=== PATIENT | male | born 1965 | race Caucasian/White ===

== ENCOUNTER 2019-09-04 20:48 | Emergency (ER) | payer BC ==
[2019-09-04 21:05] VITALS: BP 128/93; PULSE 75
[2019-09-04] MEDS ORDERED: Diphtheria,Pertussis(Acell),Tetanus Vaccine 0.5 ML Syringe IM ONE (22:35)
--- NOTE | 2019-09-04 22:40 | EDM.PDOC ---
ED HPI GENERAL MEDICAL PROBLEM - General Chief Complaint: Laceration Stated Complaint: TEAR ON RIGHT THUMB Time Seen by Provider: 09/04/19 22:18 Source of Information: Reports: Patient, RN Notes Reviewed History Limitations: Reports: No Limitations - History of Present Illness INITIAL COMMENTS - FREE TEXT/NARRATIVE: Patient is a 54-year-old male who presents to the ED for evaluation of a laceration on his right thumb. Patient notes he was on a fishing trip, and he got his thumb entrapped between 2 boats, and this resulted in a laceration to his right thumb. This is roughly 2 cm in length, slightly gaping. This laceration happened on Monday. He states he was out of town was not able to get anywhere to be seen until today. Patient's not sure of his when his last teta nus booster was. He denies any numbness or tingling to the area, and he still can move his thumb in all range of motion without little difficulty. He did not take any sort of Tylenol/ibuprofen for this. He denies any other sick-like symptoms, fever/chills, cough/shortness of breath, nausea/vomiting/diarrhea. Right Hand Pain Score (Numeric/FACES): 2 - Related Data Allergies Allergy/AdvReac Type Severity Reaction Status Date / Time No Known Allergies Allergy Verified 09/04/19 21:05 Home Meds: Home Meds Naproxen 500 mg PO BID #14 tablet 05/31/14 [Rx] traMADol [Ultram] 50 mg PO Q6H PRN #12 tab 05/31/14 [Rx] Past Medical History - Past Health History Medical/Surgical History: Denies Medical/Surgical History Social & Family History - Tobacco Use Smoking Status *Q: Never Smoker Second Hand Smoke Exposure: No - Caffeine Use Caffeine Use: Reports: None - Recreational Drug Use Recreational Drug Use: No ED ROS GENERAL - Review of Systems Review Of Systems: Comprehensive ROS is negative, except as noted in HPI. ED EXAM, SKIN/RASH Exam: See Below Exam Limited By: No Limitations General Appearance: Alert, WD/WN, No Apparent Distress Respiratory/Chest: No Respiratory Distress, Lungs Clear, Normal Breath Sounds, No Accessory Muscle Use, Chest Non-Tender Cardiovascular: Normal Peripheral Pulses, Regular Rate, Rhythm, No Murmur Peripheral Pulses: 2+: Radial (L), Radial (R) Extremities: Normal Range of Motion, Normal Capillary Refill, Joint Swelling (slight swelling to R thumb base) Neurological: Alert, Oriented, Normal Cognition, No Motor/Sensory Deficits Psychiatric: Normal Affect, Normal Mood Skin: Warm, Dry, Normal Color, No Rash, Wound/Incision (2 cm curvilinear laceration to the right thumb base on the palmar aspect of the hand. No anatomical snuffbox tenderness. No redness appreciated at the site of the wound. Bleeding is controlled at this time.) ED SKIN PROCEDURES - Laceration/Wound Repair Right Anterior Proximal Digit - 1st (Thumb) Appearance: Superficial, Clean Distal NVT: Neuro & Vascular Intact, No Tendon Injury Skin Prep: Chlorhexidine (Hibiciens), Saline Exploration/Debridement/Repair: Wound Explored, In a Bloodless Field, Explored to Base, No Foreign Material Found Closed with: Dermabond, Steri-Strips Lac/Wound length In cm: 2 Sterile Dressing Applied: Nurse Tetanus Status Addressed: Yes Complications: No Course - Vital Signs Last Recorded V/S: Last Vital Signs Temp 97.8 F 09/04/19 21:01 Pulse 75 09/04/19 21:01 Resp 18 09/04/19 21:01 BP 128/93 H 09/04/19 21: Pulse Ox 97 09/04/19 21:01 Departure - Departure Time of Disposition: 22:38 Disposition: Home, Self-Care 01 Condition: Good Clinical Impression: Laceration of thumb Qualifiers: Encounter type: initial encounter Damage to nail status: without damage Foreign body presence: without foreign body Laterality: right Qualified Code(s): S61.011A - Laceration without foreign body of right thumb without damage to nail, initial encounter - Discharge Information *PRESCRIPTION DRUG MONITORING PROGRAM REVIEWED*: No *COPY OF PRESCRIPTION DRUG MONITORING REPORT IN PATIENT LEN: No Instructions: Laceration Care, Adult, [id number] Referrals: Karina Plummer NP [Primary Care Provider] - Additional Instructions: You were evaluated in the ER today regarding your right thumb laceration. Your tetanus booster was updated at today's visit. You should not need another one for roughly 10 years. Your wound was cleansed, and then repaired with Steri-Strips, as the wound happened on Monday, and it was out of the window for sutures. Please keep an eye on the area, if you should develop any increased redness/pain/swelling, or any sort of drainage, you will want to seek care for further evaluation as you will likely need some antibiotics. Please try to keep the area clean and dry, you may cleanse with regular soap and water at home. Do not submerge the hand in water for more than 5 seconds while the wound is still healing. Please return to the ER at any time if your symptoms change or worsen. Sepsis Event Note (ED) - Evaluation Sepsis Screening Result: No Definite Risk - Focused Exam Vital Signs: Vital Signs Temp Pulse Resp BP Pulse Ox 09/04/19 21:01 97.8 F 75 18 128/93 H 97
== END 2019-09-04 23:00 | disposition home or self-care (01) ==
LOC: JD.ED 20:48
DX: S61.011A Laceration without foreign body of right thumb without damage to nail, initial encounter (principal); Z23 Encounter for immunization; W26.8XXA Contact with other sharp object(s), not elsewhere classified, initial encounter
CPT/HCPCS: 12001; 90471; 90715; 99282-25

== ENCOUNTER 2019-12-01 19:29 | Emergency (ER) | payer BC ==
[2019-12-01 19:39] VITALS: BP 161/120; PULSE 71
[2019-12-01] MEDS ORDERED: Sodium Chloride 0.9% 10 ML Syringe FLUSH PRN (19:40)
[2019-12-01] MEDS ORDERED: Ondansetron 4 MG/2 ML SDV IVPUSH ONE (19:43)
[2019-12-01] MEDS ORDERED: Sodium Chloride 0.9% 1,000 ML IV STA (19:43)
[2019-12-01] MEDS ORDERED: Ketorolac 30 MG/ML SDV IVPUSH ONE (19:43)
--- NOTE | 2019-12-01 19:52 | EDM.PDOC ---
ED HPI GENERAL MEDICAL PROBLEM - General Chief Complaint: Flank Pain Stated Complaint: LEFT SIDE PAIN Time Seen by Provider: 12/01/19 19:31 Source of Information: Reports: Patient History Limitations: Reports: No Limitations - History of Present Illness INITIAL COMMENTS - FREE TEXT/NARRATIVE: Patient is a 54-year-old male presenting to the emergency department with complaints of left-sided flank pain that wraps around to his left lower abdomen and into his groin. Symptoms began last evening. He describes the pain is fairly constant, however it did resolve for a period time last evening until this morning, however it has progressively worsened throughout the day. He has had some episodes of nausea and vomiting associated with this as well. He denies any fever or chills. Denies a history of kidney stones or diverticulosis. Denies any visible blood in his urine. Left Flank Pain Score (Numeric/FACES): 7 - Related Data Allergies Allergy/AdvReac Type Severity Reaction Status Date / Time No Known Allergies Allergy Verified 12/01/19 19:38 Home Meds: Home Meds Naproxen 500 mg PO BID #14 tablet 05/31/14 [Rx] traMADol [Ultram] 50 mg PO Q6H PRN #12 tab 05/31/14 [Rx] Past Medical History - Past Health History Medical/Surgical History: Denies Medical/Surgical History - Infectious Disease History Infectious Disease History: Reports: None Social & Family History - Tobacco Use Tobacco Use Status *Q: Never Tobacco User Second Hand Smoke Exposure: No - Caffeine Use Caffeine Use: Reports: None - Recreational Drug Use Recreational Drug Use: No ED ROS GENERAL - Review of Systems Review Of Systems: See Below Constitutional: Reports: No Symptoms. Denies: Fever, Chills, Weakness HEENT: Reports: No Symptoms Respiratory: Reports: No Symptoms Cardiovascular: Reports: No Symptoms Endocrine: Reports: No Symptoms GI/Abdominal: Reports: Nausea, Vomiting. Denies: Diarrhea : Reports: Flank Pain Musculoskeletal: Reports: No Symptoms Skin: Reports: No Symptoms Neurological: Reports: No Symptoms Psychiatric: Reports: No Symptoms Hematologic/Lymphatic: Reports: No Symptoms Immunologic: Reports: No Symptoms ED EXAM, RENAL/ - Physical Exam Exam: See Below General Appearance: Alert, WD/WN, No Apparent Distress Respiratory/Chest: No Respiratory Distress, Lungs Clear, Normal Breath Sounds, No Accessory Muscle Use, Chest Non-Tender Cardiovascular: Normal Peripheral Pulses, Regular Rate, Rhythm, No Edema, No Gallop, No JVD, No Murmur, No Rub GI/Abdominal: Normal Bowel Sounds, Soft, No Organomegaly, No Distention, No Abnormal Bruit, No Mass, Tender (Left lateral tenderness) Back Exam: Normal Inspection, Full Range of Motion, CVA Tenderness (L) Neurological: Alert, Oriented, CN II-XII Intact, Normal Cognition, Normal Gait, Normal Reflexes, No Motor/Sensory Deficits Psychiatric: Normal Affect, Normal Mood Skin Exam: Warm, Dry, Intact, Normal Color, No Rash Course - Vital Signs Last Recorded V/S: Last Vital Signs Temp 97.1 F 12/01/19 19:36 Pulse 71 12/01/19 19:36 Resp 18 12/01/19 19:36 BP 161/120 H 12/01/19 19:36 Pulse Ox 98 12/01/19 19:36 - Orders/Labs/Meds Orders: Active Orders 24 hr Category Date Time Status Peripheral IV Care [RC] . DIRECTED Care 12/01/19 19:40 Active Strain Urine [RC] ASDIRECTED Care 12/01/19 20:44 Ordered Abdomen Pelvis wo Cont [CT] Stat Exams 12/01/19 19:44 Taken CULTURE URINE [RM] Stat Lab 12/01/19 20:24 Ordered Sodium Chloride 0.9% [Saline Flush] Med 12/01/19 19:40 Active 10 ml FLUSH ASDIRECTED PRN Peripheral IV Insertion Adult [OM.PC] Stat Oth 12/01/19 19:40 Ordered Medication Orders Sodium Chloride (Saline Flush) 10 ml FLUSH ASDIRECTED PRN PRN Reason: Keep Vein Open Last Admin: 12/01/19 19:56 Dose: 10 ml Documented by: WILLIE Labs: Laboratory Tests 12/01/19 12/01/19 12/01/19 Range/Units 19:35 19:35 19:55 WBC 11.31 H (4.23-9.07) K/mm3 RBC 5.38 (4.63-6.08) M/mm3 Hgb 16.6 (13.7-17.5) gm/dl Hct 48.1 (40.1-51.0) % MCV 89.4 (79.0-92.2) fl MCH 30.9 (25.7-32.2) pg MCHC 34.5 (32.2-35.5) g/dl RDW Std Deviation 42.6 (35.1-43.9) fL Plt Count 225 (163-337) K/mm3 MPV 10.3 (9.4-12.3) fl Neut % (Auto) 61.4 (34.0-67.9) % Lymph % (Auto) 25.9 (21.8-53.1) % [place] % (Auto) 9.1 (5.3-12.2) % Eos % (Auto) 3.0 (0.8-7.0) Baso % (Auto) 0.4 (0.1-1.2) % Neut # (Auto) 6.95 H (1.78-5.38) K/mm3 Lymph # (Auto) 2.93 (1.32-3.57) K/mm3 [place] # (Auto) 1.03 H (0.30-0.82) K/mm3 Eos # (Auto) 0.34 (0.04-0.54) K/mm3 Baso # (Auto) 0.04 (0.01-0.08) K/mm3 Sodium 142 (136-145) mEq/L Potassium 3.4 L (3.5-5.1) mEq/L Chloride 103 (98-107) mEq/L Carbon Dioxide 25 (21-32) mEq/L Anion Gap 17.4 H (5-15) BUN 19 H (7-18) mg/dL Creatinine 1.4 H (0.7-1.3) mg/dL Est Cr Clr Drug Dosing 54.43 mL/min Estimated GFR (MDRD) 53 (>60) mL/min BUN/Creatinine Ratio 13.6 L (14-18) Glucose 132 H (74-106) mg/dL Calcium 9.0 (8.5-10.1) mg/dL Total Bilirubin 0.5 (0.2-1.0) mg/dL AST 16 (15-37) U/L ALT 34 (16-63) U/L Alkaline Phosphatase 97 (46-116) U/L C-Reactive Protein 0.2 (<1.0) mg/dL Total Protein 7.7 (6.4-8.2) g/dl Albumin 4.4 (3.4-5.0) g/dl Globulin 3.3 gm/dL Albumin/Globulin Ratio 1.3 (1-2) Urine Color Karolina H (Yellow) Urine Appearance Cloudy H (Clear) Urine pH 6.5 (5.0-8.0) Ur Specific [place] > or = 1.030 (1.005-1.030) Urine Protein 2+ H (Negative) Urine Glucose (UA) Negative (Negative) Urine Ketones Trace H (Negative) Urine Occult Blood 3+ H (Negative) Urine Nitrite Negative (Negative) Urine Bilirubin 1+ H (Negative) Urine Urobilinogen 1.0 (0.2-1.0) Ur Leukocyte Esterase Negative (Negative) Urine RBC >100 H (0-5) /hpf Urine WBC 5-10 H (0-5) /hpf Ur Squamous Epith Cells 0-5 (0-5) /hpf Urine Bacteria Few (FEW) /hpf Urine Mucus Not seen (FEW) /hpf Meds: Medications Generic Name Dose Route Start Last Admin Trade Name Freq PRN Reason Stop Dose Admin Sodium Chloride 10 ml 12/01/19 19:40 12/01/19 19:56 Saline Flush FLUSH 10 ml ASDIRECTED PRN Administration Keep Vein Open Discontinued Medications Generic Name Dose Route Start Last Admin Trade Name Freq PRN Reason Stop Dose Admin Sodium Chloride 1,000 mls @ 999 mls/hr 12/01/19 19:43 12/01/19 20:03 Normal Saline IV 12/01/19 20:43 999 mls/hr NOW STA Administration Ketorolac Tromethamine 30 mg 12/01/19 19:43 12/01/19 19:55 Toradol IVPUSH 12/01/19 19:44 30 mg ONETIME ONE Administration Ondansetron HCl 4 mg 12/01/19 19:43 12/01/19 19:55 Zofran IVPUSH 12/01/19 19:44 4 mg ONETIME ONE Administration Tamsulosin HCl 0.4 mg 12/01/19 20:29 Flomax PO 12/01/19 20:30 ONETIME ONE - Re-Assessments/Exams Free Text/Narrative Re-Assessment/Exam: Patient is a 54-year-old male presenting to the emergency department with left- sided flank pain radiating down to his lower abdomen and groin. He has no history of kidney stones. On exam, he does have left-sided CVA tenderness. Presentation is concerning for a kidney stone. I ordered CBC, CMP, CRP, urinal ysis, and a CT scan of the abdomen pelvis. We will give him a 1 L bolus of normal saline, Toradol for pain, Zofran for nausea. 12/01/19 20:38 Hematology was significant for WBC minimally elevated 11.31, sodium 3.4, anion gap 17.4, BUN 19, creatinine 1.4. Urinalysis was significant for 2+ protein, trace ketones, 3+ occult blood, 1+ bili, greater than 100 RBCs, and 5-10 WBCs. Urinalysis was negative for nitrates or leukocyte esterase. CT scan of the abdomen pelvis shows a 5 mm distal left ureteral calculus near the UVJ with hydroureter and hydronephrosis. Mild left perinephric stranding suggestive of forniceal rupture or infection. Due to the small amount of WBCs and small amount of perinephric stranding, I consulted with urologist on-call at [facility] Zuhair Zhao, Dr. Saldivar. He stated that this would not be considered infected stone since it is leukocyte esterase and nitrate negative. He recommended that we start him on Flomax and states he should be able to pass the stone. I will also write a prescription for Zofran for nausea and [place] for pain. He will be provided with a urine strainer. Will recommend that if he is still having pain after 1 week, that he follow-up with his primary care provider. Discharge instructions as documented. Departure - Departure Time of Disposition: 20:46 Disposition: Home, Self-Care 01 Condition: Good Clinical Impression: Kidney stone on left side - Discharge Information *PRESCRIPTION DRUG MONITORING PROGRAM REVIEWED*: Yes *COPY OF PRESCRIPTION DRUG MONITORING REPORT IN PATIENT LEN: No Instructions: Kidney Stones, [id number] Referrals: Karina Plummer NP [Primary Care Provider] - Forms: ED Department Discharge Additional Instructions: You were seen in the emergency department today for left-sided flank pain radiating down into your left lower abdomen. Work-up included blood work, urinalysis, and a CT scan of your abdomen pelvis. Results of your work-up were consistent with a 5 mm kidney stone in your left ureter. While in the ER, you received a liter of IV fluids, Toradol for pain, and Zofran for nausea. You also received your first dose of Flomax. You have been provided with a urine strainer. Recommend that you strain your urine each time you go. If you are able to capture the stone, you may take it to your primary care provider for pathology. You have been provided with a prescription for Flomax as well as Zofran for nausea and [place] for pain. Take the Flomax once daily until you pass the stone. Recommend that you take ibuprofen routinely. For pain not relieved by ibuprofen, you may use the [place] as prescribed. Zofran may be used as needed for nausea. If you continue to have pain after 1 week, would recommend follow- up with your primary care provider. If you experience any fever, chills, or new or worsening symptoms, please do not hesitate to return to the emergency department. Sepsis Event Note (ED) - Evaluation Sepsis Screening Result: No Definite Risk - Focused Exam Vital Signs: Vital Signs Temp Pulse Resp BP Pulse Ox 12/01/19 19:36 97.1 F 71 18 161/120 H 98 - My Orders Last 24 Hours: My Active Orders 12/01/19 19:40 Peripheral IV Care [RC] . DIRECTED Sodium Chloride 0.9% [Saline Flush] 10 ml FLUSH ASDIRECTED PRN Peripheral IV Insertion Adult [OM.PC] Stat 12/01/19 19:44 Abdomen Pelvis wo Cont [CT] Stat 12/01/19 20:24 CULTURE URINE [RM] Stat 12/01/19 20:44 Strain Urine [RC] ASDIRECTED - Assessment/Plan Last 24 Hours: My Active Orders 12/01/19 19:40 Peripheral IV Care [RC] . DIRECTED Sodium Chloride 0.9% [Saline Flush] 10 ml FLUSH ASDIRECTED PRN Peripheral IV Insertion Adult [OM.PC] Stat 12/01/19 19:44 Abdomen Pelvis wo Cont [CT] Stat 12/01/19 20:24 CULTURE URINE [RM] Stat 12/01/19 20:44 Strain Urine [RC] ASDIRECTED
[2019-12-01] MEDS ORDERED: Tamsulosin 0.4 MG Cap.ER PO ONE (20:29)
--- NOTE | 2019-12-05 13:31 | CT ---
"PROCEDURE INFORMATION: Exam: CT Abdomen And Pelvis Without Contrast Exam date and time: 12/01/2019 7:42 PM Age: 54 years old Clinical indication: Abdominal pain; Flank; Left TECHNIQUE: Imaging protocol: Computed tomography of the abdomen and pelvis without contrast. COMPARISON: DX Pelvis 1V or 2V 06/05/2014 9:40 AM FINDINGS: Lungs: The visualized lung bases are clear. Liver: The liver is normal. Gallbladder and bile ducts: The gallbladder is normal. There is no evidence of biliary ductal dilation. Pancreas: The pancreas is normal. Spleen: The spleen is normal. Adrenals: The adrenal glands are normal. Kidneys and ureters: The right kidney is normal. No hydronephrosis. No visible calculi. 5 mm distal left ureteral calculus near the UVJ with hydroureter and hydronephrosis. There is mild inflammatory left perinephric stranding. There is mild left hydronephrosis. There is mild left hydroureter. There are least 4-5 additional calculi in the left kidney measuring up to 6 mm. Stomach and bowel: Non-specific/nonobstructive intestinal gas pattern. Appendix: A normal appendix is identified. Intraperitoneal space: No free air. No free fluid. Vasculature: There is no aortic aneurysm. Lymph nodes: There is no adenopathy. Urinary bladder: The bladder is normal. Reproductive: The prostate demonstrates nonspecific parenchymal calcifications. Bones/joints: No acute bony findings are identified. Soft tissues: No acute soft tissue abnormalities are identified. ARMANDO HAMILTON | Final Radiology Report CONFIDENTIALITY STATEMENT This report is intended only for use by the referring physician, and only in accordance with law. If you received this in error, call [phone]. Page 2 of 2 IMPRESSION: 1. 5 mm distal left ureteral calculus near the UVJ with hydroureter and hydronephrosis. 2. Mild left perinephric stranding suggests forniceal rupture and/or infection. 3. There are additional intrarenal calculi on the left. Thank you for allowing us to participate in the care of your patient. Dictated and Authenticated by: Armando Bryan MD 12/01/2019 9:25 PM Central Time ([place] & [place]) [facility]ENTER[facility]"
== END 2019-12-01 20:58 | disposition home or self-care (01) ==
LOC: JD.ED 19:29
DX: N13.2 Hydronephrosis with renal and ureteral calculous obstruction (principal)
CPT/HCPCS: 36415; 74176; 80053; 81001; 85025; 86140; 87086; 96374; 96375; 99284; A9270; J1885; J2405; J7030

== ENCOUNTER 2019-12-04 14:39 | Emergency (ER) | payer BC ==
[2019-12-04 14:55] VITALS: BP 154/97; PULSE 75
[2019-12-04] MEDS ORDERED: Dicyclomine 10 MG Cap PO ONE (15:19)
--- NOTE | 2019-12-04 15:22 | EDM.PDOC ---
ED HPI GENERAL MEDICAL PROBLEM - General Chief Complaint: Abdominal Pain Stated Complaint: ABDOMINAL PAIN Time Seen by Provider: 12/04/19 15:14 Source of Information: Reports: Patient History Limitations: Reports: No Limitations - History of Present Illness INITIAL COMMENTS - FREE TEXT/NARRATIVE: 54-year-old male presents to the ED with diffuse abdominal cramping pain. He reports he was seen through the ED on November 30 and identified to have a left renal stone approximately 5 mm in size in the distal left ureter close to the UVJ. Urology consultation was obtained and the urologist felt that he is likely to pass the stone on his own. Patient reports that he is been having recurrent renal colic pain for the last 5 days and has been taking Meigs usually up to 4 tabs daily for pain relief. He reports he has not had a normal bowel movement for 4 or 5 days. He feels a pressure in the rectum to go but is unable to pass any bowel. He feels distended and bloated. He has decreased appetite and poor fluid and food intake for the last 2 days. Associated nausea secondary to the pain without vomiting at home. Onset: Gradual (He has been having intestinal colic or abdominal pain off and on for the last) Onset Date: 12/01/19 Duration: Day(s):, Getting Worse, Other (Intermittent intestinal colic.) Location: Reports: Abdomen Quality: Reports: Other (Periumbilical pain in left lower quadrant of the abdomen. Stabbing cramping pain with intermittent left flank and lower abdominal pain) Severity: Moderate (Out of 10.) Improves with: Reports: None Worsens with: Reports: Eating (Pain is worsened in the abdomen with eating.) Context: Denies: Activity, Exercise, Lifting, Sick Contact, Trauma, Other Associated Symptoms: Reports: Loss of Appetite, Malaise, Weakness. Denies: Cough, cough w sputum, Diaphoresis, Fever/Chills, Headaches, Nausea/Vomiting, Rash, Seizure Treatments DIVINITY TEACHER: Reports: Other (see below) Other Treatments DIVINITY TEACHER: norco Left Flank Pain Score (Numeric/FACES): 8 - Related Data Allergies Allergy/AdvReac Type Severity Reaction Status Date / Time No Known Allergies Allergy Verified 12/01/19 19:38 Home Meds: Home Meds Acetaminophen/HYDROcodone [Meigs 325-5 MG] 1 tab PO Q4H PRN 12/04/19 [History] Ondansetron [Zofran] 4 mg PO Q6H PRN 12/04/19 [History] Tamsulosin HCl [Flomax] 0.4 mg PO DAILY 12/04/19 [History] Past Medical History - Past Health History Medical/Surgical History: Denies Medical/Surgical History Genitourinary History: Reports: BPH (Takes Flomax daily for benign prostatic hypertrophy.), Renal Calculus (Diagnosed with renal colic on December 01, 2019. He has no history of previous renal stones. CT reveals 6 other stones within th e left renal parenchyma at the time of CT November 30. CT revealed a 5 mm distal left ureter stone.) - Infectious Disease History Infectious Disease History: Reports: None - Past Surgical History Musculoskeletal Surgical History: Reports: Other (See Below) Other Musculoskeletal Surgeries/Procedures:: mid back surgery Social & Family History - Tobacco Use Tobacco Use Status *Q: Never Tobacco User - Caffeine Use Caffeine Use: Reports: Coffee, Soda, Tea - Recreational Drug Use Recreational Drug Use: No - Living Situation & Occupation Living situation: Reports: Occupation: Employed (Self-employed) ED ROS GENERAL - Review of Systems Review Of Systems: See Below Constitutional: Reports: Malaise, Weakness, Fatigue, Decreased Appetite. Denies: Fever, Chills HEENT: Reports: Glasses Respiratory: Reports: No Symptoms Cardiovascular: Reports: No Symptoms Endocrine: Reports: Fatigue GI/Abdominal: Reports: Abdominal Pain (See history of present illness.), Constipation, Decreased Appetite, Nausea (Amount for the last 4 days.). Denies: Vomiting : Reports: Frequency (Usually nocturia x1-2. Known to have BPH and is on Flomax 0.4 mg daily. Recent diagnosis with left renal colic with a 5 mm stone distal left ureter on November 30.) Musculoskeletal: Reports: No Symptoms Skin: Reports: No Symptoms Neurological: Reports: No Symptoms Psychiatric: Reports: No Symptoms Hematologic/Lymphatic: Reports: No Symptoms Immunologic: Reports: No Symptoms ED EXAM, RENAL/ - Physical Exam Exam: See Below Exam Limited By: No Limitations General Appearance: Alert, WD/WN, Mild Distress, Other (Temperature is 36.2. Heart rate 75 and sinus respiratory is 20 with O2 sats of 95% room air. BP 154/97.) Eye Exam: Bilateral Eye: Normal Inspection, PERRL Throat/Mouth: Other Head: Atraumatic, Normocephalic (Tongue is mildly dry and coated.) Neck: Normal Inspection, Supple, Non-Tender, Full Range of Motion. No: Lymphadenopathy (L), Lymphadenopathy (R) Respiratory/Chest: No Respiratory Distress, Lungs Clear, Normal Breath Sounds, No Accessory Muscle Use Cardiovascular: Normal Peripheral Pulses, Regular Rate, Rhythm, No Edema, No Gallop, No Murmur, No Rub GI/Abdominal: Distended (Hyperactive bowel sounds throughout the abdomen. Abdomen is mildly distended and tympany to percussion in all 4 quadrants.), Abnormal Bowel Sounds, Other (Abdomen is firm to palpation. Left lower quadrant fullness on examination clinically due to constipation.). No: Guarding, Rigid ( No localized peritoneal signs), Rebound, Tender (Male) Exam: No Hernia Back Exam: Normal Inspection, Full Range of Motion. No: CVA Tenderness (L), CVA Tenderness (R) Extremities: Normal Inspection, Normal Range of Motion, Non-Tender, No Pedal Edema Neurological: Alert, Oriented, CN II-XII Intact, Normal Cognition Psychiatric: Flat Affect Skin Exam: Warm, Dry, Intact, Normal Color, No Rash Course - Vital Signs Last Recorded V/S: Last Vital Signs Temp 36.2 C 12/04/19 14:53 Pulse 75 12/04/19 14:53 Resp 20 12/04/19 14:53 BP 154/97 H 12/04/19 14:53 Pulse Ox 95 12/04/19 14:53 - Orders/Labs/Meds Labs: Laboratory Tests 12/04/19 12/04/19 12/04/19 Range/Units 16:10 16:10 17:15 WBC 11.43 H (4.23-9.07) K/mm3 RBC 4.91 (4.63-6.08) M/mm3 Hgb 15.2 (13.7-17.5) gm/dl Hct 43.7 (40.1-51.0) % MCV 89.0 (79.0-92.2) fl MCH 31.0 (25.7-32.2) pg MCHC 34.8 (32.2-35.5) g/dl RDW Std Deviation 41.2 (35.1-43.9) fL Plt Count 170 (163-337) K/mm3 MPV 10.4 (9.4-12.3) fl Neut % (Auto) 88.8 H (34.0-67.9) % Lymph % (Auto) 5.5 L (21.8-53.1) % [place] % (Auto) 5.2 L (5.3-12.2) % Eos % (Auto) 0.1 L (0.8-7.0) Baso % (Auto) 0.2 (0.1-1.2) % Neut # (Auto) 10.15 H (1.78-5.38) K/mm3 Lymph # (Auto) 0.63 L (1.32-3.57) K/mm3 [place] # (Auto) 0.60 (0.30-0.82) K/mm3 Eos # (Auto) 0.01 L (0.04-0.54) K/mm3 Baso # (Auto) 0.02 (0.01-0.08) K/mm3 Manual Slide Review Normal smear Sodium 138 (136-145) mEq/L Potassium 3.7 (3.5-5.1) mEq/L Chloride 101 (98-107) mEq/L Carbon Dioxide 26 (21-32) mEq/L Anion Gap 14.7 (5-15) BUN 11 (7-18) mg/dL Creatinine 1.7 H (0.7-1.3) mg/dL Est Cr Clr Drug Dosing 44.83 mL/min Estimated GFR (MDRD) 42 (>60) mL/min BUN/Creatinine Ratio 6.5 L (14-18) Glucose 119 H (74-106) mg/dL Calcium 9.2 (8.5-10.1) mg/dL Total Bilirubin 1.0 (0.2-1.0) mg/dL AST 17 (15-37) U/L ALT 24 (16-63) U/L Alkaline Phosphatase 81 (46-116) U/L C-Reactive Protein 4.0 H* (<1.0) mg/dL Total Protein 7.2 (6.4-8.2) g/dl Albumin 4.0 (3.4-5.0) g/dl Globulin 3.2 gm/dL Albumin/Globulin Ratio 1.3 (1-2) Urine Color Yellow (Yellow) Urine Appearance Clear (Clear) Urine pH 7.0 (5.0-8.0) Ur Specific [place] 1.025 (1.005-1.030) Urine Protein Trace H (Negative) Urine Glucose (UA) Negative (Negative) Urine Ketones 3+ H (Negative) Urine Occult Blood Negative (Negative) Urine Nitrite Negative (Negative) Urine Bilirubin Negative (Negative) Urine Urobilinogen 0.2 (0.2-1.0) Ur Leukocyte Esterase Negative (Negative) Urine RBC 0-5 (0-5) /hpf Urine WBC 0-5 (0-5) /hpf Ur Squamous Epith Cells 0-5 (0-5) /hpf Urine Bacteria Not seen (FEW) /hpf Urine Mucus Not seen (FEW) /hpf SARS-CoV-2 RNA (GERDA) (NEGATIVE) 12/04/19 Range/Units 19:25 WBC (4.23-9.07) K/mm3 RBC (4.63-6.08) M/mm3 Hgb (13.7-17.5) gm/dl Hct (40.1-51.0) % MCV (79.0-92.2) fl MCH (25.7-32.2) pg MCHC (32.2-35.5) g/dl RDW Std Deviation (35.1-43.9) fL Plt Count (163-337) K/mm3 MPV (9.4-12.3) fl Neut % (Auto) (34.0-67.9) % Lymph % (Auto) (21.8-53.1) % [place] % (Auto) (5.3-12.2) % Eos % (Auto) (0.8-7.0) Baso % (Auto) (0.1-1.2) % Neut # (Auto) (1.78-5.38) K/mm3 Lymph # (Auto) (1.32-3.57) K/mm3 [place] # (Auto) (0.30-0.82) K/mm3 Eos # (Auto) (0.04-0.54) K/mm3 Baso # (Auto) (0.01-0.08) K/mm3 Manual Slide Review Sodium (136-145) mEq/L Potassium (3.5-5.1) mEq/L Chloride (98-107) mEq/L Carbon Dioxide (21-32) mEq/L Anion Gap (5-15) BUN (7-18) mg/dL Creatinine (0.7-1.3) mg/dL Est Cr Clr Drug Dosing mL/min Estimated GFR (MDRD) (>60) mL/min BUN/Creatinine Ratio (14-18) Glucose (74-106) mg/dL Calcium (8.5-10.1) mg/dL Total Bilirubin (0.2-1.0) mg/dL AST (15-37) U/L ALT (16-63) U/L Alkaline Phosphatase (46-116) U/L C-Reactive Protein (<1.0) mg/dL Total Protein (6.4-8.2) g/dl Albumin (3.4-5.0) g/dl Globulin gm/dL Albumin/Globulin Ratio (1-2) Urine Color (Yellow) Urine Appearance (Clear) Urine pH (5.0-8.0) Ur Specific [place] (1.005-1.030) Urine Protein (Negative) Urine Glucose (UA) (Negative) Urine Ketones (Negative) Urine Occult Blood (Negative) Urine Nitrite (Negative) Urine Bilirubin (Negative) Urine Urobilinogen (0.2-1.0) Ur Leukocyte Esterase (Negative) Urine RBC (0-5) /hpf Urine WBC (0-5) /hpf Ur Squamous Epith Cells (0-5) /hpf Urine Bacteria (FEW) /hpf Urine Mucus (FEW) /hpf SARS-CoV-2 RNA (GERDA) Negative (NEGATIVE) Meds: Medications Discontinued Medications Generic Name Dose Route Start Last Admin Trade Name Freq PRN Reason Stop Dose Admin Dicyclomine HCl 20 mg 12/04/19 15:19 12/04/19 15:29 Bentyl PO 12/04/19 15:20 20 mg ONETIME ONE Administration Hydromorphone HCl 1 mg 12/04/19 15:49 12/04/19 16:04 Dilaudid IVPUSH 12/04/19 15:50 1 mg ONETIME ONE Administration Sodium Chloride 1,000 mls @ 999 mls/hr 12/04/19 16:00 12/04/19 16:04 Normal Saline IV 999 mls/hr ASDIRECTED RANGEL Administration Ceftriaxone Sodium 2 gm/ 100 mls @ 200 mls/hr 12/04/19 17:39 12/04/19 17:45 Sodium Chloride IV 12/04/19 18:08 200 mls/hr ONETIME ONE Administration Ondansetron HCl 4 mg 12/04/19 15:49 12/04/19 16:04 Zofran IVPUSH 12/04/19 15:50 4 mg ONETIME ONE Administration - Radiology Interpretation Free Text/Narrative:: 54-year-old male presents to the ED with diffuse abdominal pain. Associated nausea. Pain is peers to have a strong colicky component. Patient was diagnosed November 30 of this month with a 5 mm renal stone distal left ureter. It was just above the UVJ. Urology consultation revealed that he was likely going to pass this on his own and follow-up is therefore not been arranged. Patient has no history of renal colic in the past. CT done in November 30 revealed 6 other stones within the left renal parenchyma which may be problematic in the future. He did have moderate hydroureter and hydronephrosis with perinephric stranding and periureteric stranding. There were were a few white blood cells in his urine at that time. He denies fever. He states he has not had a bowel movement for 4 to 5 days and is still taking Meigs tablets regularly due to renal colic pain. He has not appreciated any blood in his urine but the urine is dark in color. Patient has a history of BPH and is on Flomax 0.4 mg once daily. Examination reveals very active bowel sounds all 4 quadrants. Diffuse firmness of the abdominal wall with tympany to percussion all 4 quadrants. No localized peritoneal signs. Questionable palpable mass left lower quadrant in the distribution sigmoid colon combined with constipation. Plan KUB will be obtained. We will give Bentyl 20 mg p.o. for relief of intestinal colic. - Re-Assessments/Exams Free Text/Narrative Re-Assessment/Exam: 12/04/19 15:49 Patient is having significant intestinal colic at this time. He has completed his x-ray of the abdomen which shows increased stool throughout the entire right hemicolon with increased stool through the lower descending colon and rectal vault. No signs of bowel obstruction. Free air. Patient did vomit due to the intensity of the pain just now and his Bentyl tablet that he was given for cramps came back up. Plan he will require IV fluids. Normal saline at open. Given Dilaudid 1 mg IV with Zofran 4 mg IV for nausea and pain relief. After this he will receive a soapsuds enema to try and relieve the lower abdominal stool bolus. He is going to require Citroma 8 ounces by mouth once pain is under control to strain relieve some of the right hemicolon constipation. 12/04/19 16:33 Patient reports that his pain is still 6 out of 10. Will repeat Dilaudid 1 mg IV. He is least is able to not lay down on the bed at this time and has no further nausea. He does have persistent left flank pain due to high- grade obstruction. I think therefore he is going to require urology consultation with potential basket retrieval of left distal ureteric stone. Plan: he will be given a soapsuds enema when he is little more comfortable with after IV analgesia. 12/04/19 17:06 Labs reveal a mildly elevated white count at 11.43. This reveals 88.8% neutrophils. Hemoglobin 15.2 with hematocrit of 43.7. Platelet count 170,000. Smear was reviewed by hematology and they report no toxic granulation pattern. Sodium is 138 with a potassium of 3.7 chloride 101 with a bicarb of 26. Anion gap is 14.7. BUN 11 with a creatinine of 1.7 mildly elevated. Estimated GFR is 42. Glucose is 119 calcium 9.2. Liver function normal C- reactive protein is elevated at 4.0. Total protein is 7.2. 12/04/19 17:25 Patient is currently receiving a soapsuds enema. Looking at his lab work without a urinalysis available at this time with an elevated CRP and white count he likely has a complicated urinary tract infection due to high- grade obstruction due to renal stone distal left ureter. I am going to proceed with antibiotic treatment with Rocephin 2 g IV. 12/04/19 17:48 Urinalysis shows trace of protein and 3+ ketones. Negative leukocyte esterase and negative white cells. 12/04/19 18:10: On reevaluation after soapsuds enema patient had passage of only a couple of small pieces of formed stool and the rest was colored water. Patient still feels pressure in the rectal vault. He also clinically is facially flushed and clinically has a fever. Rocephin 2 g IV is infusing at this time. Plan I am going to proceed with a Fleet enema with mineral oil in the hopes of provoking more of a better bowel movement. Patient reports pain is much improved and rates it as a 1-2 out of 10 at this time. He does not feel that he needs further medication for pain at this time 12/04/19 19:03 : Patient reports he is feeling better. He did have a good bowel movement after the mineral oil Fleet enema. Fever is abating. I did contact Dr. Thakur urologist on-call at [facility] in [place] and discussed the case with him. I was wondering how the patient would approach care with the Covid 19 illness that is going on at this time. Through the 1 call nurse we found out that there is a bed available at [facility] in [place] at this time. It was Dr. Thakur's suggestion that the patient be admitted to the hospital for intervention either by interventional radiology or passage of a ureteral stent to bypass the stone versus possibly removing it by basket retrieval. It is suspect that his current fever is secondary to developing pyelonephritis due to high-grade ureter obstruction. I therefore spoke to on- call hospitalist Dr. Valdes--and he has accepted care. The plan will be to have the patient have a COVID-19 screening test in the ED before traveling to [facility]. He is to remain n.p.o. as intervention may be required tonight. 12/04/19 020:20 Covid 19 screen is negative.Patient will be on his way to [facility] in [facility] for urology consultation and treatment. Departure - Departure Time of Disposition: 20:29 Disposition: DC/Tfer to Acute Hospital 02 Condition: Fair Clinical Impression: Constipation by delayed colonic transit, Renal colic on left side, Acute febrile illness Abdominal pain Qualifiers: Abdominal location: generalized Qualified Code(s): R10.84 - Generalized abdominal pain - Discharge Information *PRESCRIPTION DRUG MONITORING PROGRAM REVIEWED*: Not Applicable *COPY OF PRESCRIPTION DRUG MONITORING REPORT IN PATIENT LEN: Not Applicable Instructions: Abdominal Pain, Adult, Renal Colic, [id number], Abdominal Pain, Adult, [id number], Fever, Adult, [id number] Referrals: Karina Plummer NP [Primary Care Provider] - Forms: ED Department Discharge Additional Instructions: Evaluation in the emergency room today in regards to diffuse abdominal pain with persistent left-sided renal colic pain left lower abdomen rating into the left flank. You are diagnosed with a 5 mm stone in the lower portion of the left ureter on November 30. 6 other stones were identified to be within the left kidney tissue possibly causing problems in the future. On today's examination abdomen is distended and diffusely tympanic to percussion due to increased air within the bowel and the abdomen. An x-ray of the abdomen shows constipation throughout the right hemicolon and into the lower rectum. You were treated with IV fluids for rehydration pain medication Dilaudid 1 mg initially and a second milligram half an hour later for relief of abdominal pain and left flank pain. Antinausea medication Reglan 7.5 mg IV. You responded to soapsuds enema and a Fleet enema with mineral oil and had a satisfactory bowel movement likely getting rid of the lower rectal stool plug. You need further treatment with ideally Citroma or magnesium citrate orally when it is feasible to provide right colon bowel cleanse. Due to the development of fever while in the ED and elevated white blood cell count with evidence of developing infection you were placed on antibiotic 2 g of Rocephin in the emergency department. I have subsequently spoken with urologist on-call at [facility] in [place] --Dr. Thakur. It is his suggestion is that you should come down to the hospital tonight as a bed is available for admission to the hospital. He does not want you to eat or drink in route to the hospital due to [facility] a urethral stent to decompress the left kidney. You are to be admitted to the hospital per hospitalist . The concern nowadays is with possible COVID-19 illness. You will be screened for this at this time. Sepsis Event Note (ED) - Evaluation Sepsis Screening Result: No Definite Risk
[2019-12-04] MEDS ORDERED: HYDROmorphone 1 MG/ML Syringe IVPUSH ONE (15:49)
[2019-12-04] MEDS ORDERED: Ondansetron 4 MG/2 ML SDV IVPUSH ONE (15:49)
[2019-12-04] MEDS ORDERED: Sodium Chloride 0.9% 1,000 ML IV SCH (16:00)
[2019-12-04] MEDS ORDERED: cefTRIAXone 2 GM in Sodium Chloride 0.9% 100 ML IV ONE ×2 (17:27→17:39)
--- NOTE | 2019-12-05 16:32 | CR ---
PROCEDURE INFORMATION: Exam: XR Abdomen, 1 View Exam date and time: 12/04/2019 3:26 PM Age: 54 years old Clinical indication: Abdominal pain; Acute; Patient HX: Left sided abd pain onset 4 days ago, dx lt renal kidney stone on CT last week, taking norco frequently for pain with no bm for 4-5 days TECHNIQUE: Imaging protocol: XR of the abdomen. Views: Frontal supine view of the abdomen. 1 View. COMPARISON: CT Abdomen Pelvis wo Cont 12/01/2019 7:42 PM FINDINGS: Lungs: The visualized portions of the lung bases demonstrate no acute disease. Gastrointestinal tract: There is no evidence of intestinal perforation or obstruction. There is excessive colonic stool content. Bones/joints: No acute abnormality or aggressive osseous lesion. IMPRESSION: Moderate to severe constipation. No definitive evidence of bowel obstruction. Thank you for allowing us to participate in the care of your patient. Dictated and Authenticated by: Kwesi Delgado MD 12/04/2019 4:39 PM Central Time ([place] & [place]) MTDD
== END 2019-12-04 20:30 ==
LOC: JD.ED 14:39
DX: K59.01 Slow transit constipation (principal); N23 Unspecified renal colic; N40.0 Benign prostatic hyperplasia without lower urinary tract symptoms; R50.9 Fever, unspecified; Z79.899 Other long term (current) drug therapy; Z20.828 Contact with and (suspected) exposure to other viral communicable diseases
CPT/HCPCS: 36415; 74018; 80053; 81001; 85025; 86140; 87635; 96365; 96375; 99285; A9270; J0696; J1170; J2405; J7030; J7050; U0002